=== PATIENT | female | born 1975 | race Caucasian/White ===

== ENCOUNTER 2017-03-12 09:10 | Emergency (ER) | payer OTHER ==
[~2017-03-12] VITALS: Ht 165.1 cm; Wt 88.9 kg
[~2017-03-12 09:10] MED LIST: ADVAIR 250/501 DISK IH; ADVAIR HFA120 INHALA IH; AMBIEN10 MG PO; Advair HFA 115/21 IH; Advair HFA 230/21 IH; Ambien PO; BACTRIM,SEPT1 TABLE1 PO; CELEXA20 MG PO; CELEXA40 MG PO; CHLORDIAZEPOXID25 MG PO; CLONIDINE HCL0.2 MG PO; DESYREL100 MG PO; DESYREL300 MG PO; DIFLUCAN100 MG PO; DILAUDID2 MG PO; DULCOLAX5 MG PO; Desyrel PO; ENDOCET 7.5-501 EACH PO; FOLIC ACID1 MG PO; Flexeril PO; GEODON20 MG PO; GEODON40 MG PO; GEODON80 MG PO; HABITROL,NICODE21 MG TD; HALDOL5 MG/M1 IM; IRON325 M1 PO; LAMICTAL100 MG PO; LAMICTAL150 MG PO; LAMOTRIGINE100 MG PO; LEVOTHROID50 MCG PO; LIDOVEX60 GM TP; LITHIUM CARBON300 M1 PO; LOMOTIL TABLET1 EACH PO; Levothroid,Synthroid PO; Luvox PO; METHYLIN20 MG PO; MOBIC15 MG PO; MOBIC7.5 MG PO; MONISTAT 745 GM VG; NEOSPORIN OINTM30 GM TP; NEURONTIN300 MG PO; NICOTINE PATCH1 EAC2 TD; ONDANSETRON HCL8 MG PO; OPANA ER20 MG PO; OXYCODONE HCL30 MG PO; OXYCONTIN80 MG PO; OxyCODONE PO; PERCOCET; PERCOCET 10/1 TABLET PO; PERCOCET 5/31 TABLET PO; PROCHLORPERAZIN10 MG PO; Pepcid PO; Proventil,Ventolin H IH; RANITIDINE; RANITIDINE HCL150 M1 PO; RANITIDINE HCL150 MG PO; RANITIDINE HCL75 MG PO; REQUIP0.25 MG PO; REQUIP1 MG PO; ROXICODONE5 MG/5 ML PO; Remove Nicotine Patc TD; SENOKOT S,PE1 TABLET PO; SILVADENE20 GM TP; SOMA350 MG PO; STRATTERA25 MG PO; SYNTHROID25 MCG PO; SYNTHROID50 MCG PO; TRAZODONE HCL150 MG PO; Tylenol Extra Streng PO; VENTOLIN HFA18 GM IH; ZOLOFT100 M1 PO; [UNRECOGNIZED DRUG - OTHER] PO; celeXA PO
[2017-03-12 09:32] VITALS: BP 00/00
== END 2017-03-12 09:49 | disposition left against medical advice (07) ==
LOC: EME 09:10
DX: R06.89 Other abnormalities of breathing (principal); R10.9 Unspecified abdominal pain; Z53.21 Procedure and treatment not carried out due to patient leaving prior to being seen by health care provider
CPT/HCPCS: 80048; 85027